=== PATIENT | male | born 1980 | race Caucasian/White ===

== ENCOUNTER 2018-11-14 17:08 | Inpatient (IN) ==
--- NOTE | 2018-11-14 18:02 | Emergency Department Note ---
Disposition Clinical Impression: Suicidal ideation Disposition: Admitted As Inpatient Time of Disposition: 22:25 Psych HPI - General Chief Complaint: ED Psychiatric Symptoms Stated Complaint: anxiety/depression Time Seen by Provider: 11/14/18 17:43 Source: patient Mode of arrival: ambulatory Limitations: no limitations Nursing Notes Reviewed: Yes Vital Signs Reviewed: Yes - History of Present Illness HPI Narrative: 38M with PMHx of depression and anxiety presents the emergency department with suicidal ideation and worsening depression. The patient states that he has been increasing his home dose of antidepressant with his primary care doctor but over the past 2 weeks he has felt as though he did not want to be alive anymore and that the world would be a better place without him. He does note that his and 3 kids need to have him around but he does not know how much longer he go on like this. Patient has had specific thoughts about jumping off the review behind his house to kill himself. He denies having any homicidal ideation, visual or auditory hallucinations, and states that he has not taken anything an attempt to harm himself today. He came here seeking help so that he would not give into his suicidal ideations. - Related Data Home Medications Medication Instructions Recorded Confirmed Depression Pills 01/23/18 Ibuprofen 01/23/18 Previous Rx's Medication Instructions Recorded Hydrocortisone 2.5% CREAM [Cortaid] 1 applic TP TID 7 Days #1 tube 01/23/18 Allergies Allergy/AdvReac Type Severity Reaction Status Date / Time Penicillins AdvReac Nausea Verified 01/23/18 17:43 All systems ED: reviewed and negative except as stated. Review of Systems: As Per HPI Constitutional: Denies: fever, weakness Cardiovascular: Denies: chest pain, palpitations, dyspnea on exertion Respiratory: Denies: cough, dyspnea, wheezes Gastrointestinal: Denies: abdominal pain, nausea, vomiting Genitourinary: Denies: dysuria, hematuria Musculoskeletal: Denies: back pain Endocrine: Denies: fatigue Past Medical History - Past Medical History Attestation: Yes The following information was validated with the patient. Source: patient Medical history: Reports: other Psychiatric history: Reports: anxiety, depression - Social History Smoking Status: Never smoker Smokeless Tobacco Status: No Alcohol use: Reports: none Drug use: Reports: none Physical Exam - General Limitations: no limitations General appearance: alert, in no apparent distress - Head Head exam: atraumatic, normocephalic - Eye Eye exam: Present: normal appearance, PERRL, EOMI - ENT ENT exam: normal exam, normal oropharynx - Neck Neck exam: Present: normal inspection. Absent: tenderness - Chest Chest inspection: Present: normal inspection. Absent: tenderness - Respiratory Respiratory exam: Present: normal lung sounds bilaterally. Absent: wheezes - Cardiovascular Cardiovascular exam: Present: regular rate, normal rhythm - Abdominal Exam Abdominal exam: Present: soft, Non-Tender. Absent: distention, guarding, rebound, rigidity - Extremities Exam Extremities exam: Present: normal inspection. Absent: tenderness - Neurological Exam Neurological exam: Present: alert, oriented X3 - Psychiatric Psychiatric exam: Present: normal affect, normal mood, suicidal ideation. Absent: homicidal ideation - Skin Skin exam: Present: warm, dry, intact Course Vital Signs Temperature 97.4 F L 11/14/18 17:16 Pulse Rate 69 11/14/18 17:16 Respiratory Rate 16 11/14/18 17:16 Blood Pressure 155/94 11/14/18 17:16 O2 Sat by Pulse Oximetry 99 11/14/18 17:16 Temperature 97.4 F L 11/14/18 17:16 Pulse Rate 69 11/14/18 17:16 Respiratory Rate 16 11/14/18 17:16 Blood Pressure 155/94 11/14/18 17:16 O2 Sat by Pulse Oximetry 99 11/14/18 17:16 Oxygen Delivery Oxygen Delivery Room Air Psych - MDM Narrative Medical decision making narrative: Patient presents with suicidal ideations and concern is he does not want to kill himself but he does not want to be alive anymore. We will do screening labs and consult with [facility] to help with further management of this patient. [place] slip was signed at 17:45. Patient has been accepted for further evaluation by [facility]. - Lab Data Result diagrams: 11/14/18 17:56 11/14/18 17:56 Lab Results 11/14/18 11/14/18 11/14/18 Range/Units 17:50 17:56 17:56 WBC 7.2 (4.3-11.1) K/mcL RBC 4.99 (4.19-5.50) M/mcL Hgb 15.6 (12.9-16.9) g/dL Hct 45.5 (37.5-50.1) % MCV 91.2 (83.0-100.0) fL MCH 31.3 (28.0-33.3) pg MCHC 34.3 (31.6-35.5) g/dL RDW 12.7 (11.5-14.5) % Plt Count 202 (140-400) K/mcL MPV 9.3 L (9.4-12.4) fL Immature Gran % 0.3 (0-4) % Seg Neutrophils % 62.6 % Lymphocytes % 26.3 % Monocytes % 8.8 % Eosinophils % 1.0 % Basophils % 1.0 % Neutrophils # 4.5 (1.6-8.9) K/mcL Lymphocytes # 1.9 (0.6-4.6) K/mcL Monocytes # 0.6 (0.0-1.3) K/mcL Eosinophils # 0.1 (0.0-0.6) K/mcL Basophils # 0.1 (0.0-0.2) K/mcL Sodium (136-145) mEq/L Potassium (3.5-5.1) mEq/L Chloride (98-107) mEq/L Carbon Dioxide (23-29) mEq/L BUN (6-20) mg/dL Creatinine (0.70-1.30) mg/dL Est GFR ( Amer) (> 60) Est GFR (Non-Af Amer) (> 60) BUN/Creatinine Ratio (6-26) Glucose (70-105) mg/dL Calculated Osmolality (280-300) Calcium (8.6-10.3) mg/dL Urine Color Dark Yellow (Yellow) Urine Clarity Clear (Clear) Urine pH 5.5 (5.0-8.0) pH Units Ur Specific [place] > 1.030 H (1.010-1.025) Urine Protein 30 H (Neg-Trace) mg/dL Urine Glucose (UA) Normal (Normal) mg/dL Urine Ketones Negative (Negative) mg/dL Urine Blood Negative (Negative) Urine Nitrite Negative (Negative) Urine Bilirubin Small H (Negative) Urine Urobilinogen Normal (Normal) mg/dL Ur Leukocyte Esterase Negative (Negative) Urine Microscopic WBC 3-5 H (0-3) per hpf Ur Squamous Epith Cells Moderate H (None-Few) per lpf Calcium Oxalate Crystal Present Urine Bacteria None Seen (None-Few) per hpf Hyaline Casts None Seen (None-Few) per lpf Salicylates (15.0-30.0) mg/dL Urine Opiates Screen Negative (Qqpqlw=124) ng/mL Ur Buprenorphine Scrn Negative (Cutoff=5) ng/mL Acetaminophen (10-20) mcg/mL Ur Barbiturates Screen Negative (Onzfgq=585) ng/mL Ur Phencyclidine Scrn Negative (Cutoff=25) ng/mL Ur Amphetamines Screen Negative (Jxwkxb=4031) ng/mL U Benzodiazepines Scrn Negative (Qddyng=785) ng/mL Urine Cocaine Screen Negative (Cutoff= 300) ng/mL U Marijuana (THC) Screen Negative (Cutoff = 50) ng/mL Ur Drug Screen Interp See Below Ethyl Alcohol (Less than 10) mg/dL 11/14/18 Range/Units 17:56 WBC (4.3-11.1) K/mcL RBC (4.19-5.50) M/mcL Hgb (12.9-16.9) g/dL Hct (37.5-50.1) % MCV (83.0-100.0) fL MCH (28.0-33.3) pg MCHC (31.6-35.5) g/dL RDW (11.5-14.5) % Plt Count (140-400) K/mcL MPV (9.4-12.4) fL Immature Gran % (0-4) % Seg Neutrophils % % Lymphocytes % % Monocytes % % Eosinophils % % Basophils % % Neutrophils # (1.6-8.9) K/mcL Lymphocytes # (0.6-4.6) K/mcL Monocytes # (0.0-1.3) K/mcL Eosinophils # (0.0-0.6) K/mcL Basophils # (0.0-0.2) K/mcL Sodium 142 (136-145) mEq/L Potassium 3.7 (3.5-5.1) mEq/L Chloride 105 (98-107) mEq/L Carbon Dioxide 26 (23-29) mEq/L BUN 25 H (6-20) mg/dL Creatinine 1.01 (0.70-1.30) mg/dL Est GFR ( Amer) > 60 (> 60) Est GFR (Non-Af Amer) > 60 (> 60) BUN/Creatinine Ratio 25 (6-26) Glucose 137 H (70-105) mg/dL Calculated Osmolality 301 H (280-300) Calcium 9.1 (8.6-10.3) mg/dL Urine Color (Yellow) Urine Clarity (Clear) Urine pH (5.0-8.0) pH Units Ur Specific [place] (1.010-1.025) Urine Protein (Neg-Trace) mg/dL Urine Glucose (UA) (Normal) mg/dL Urine Ketones (Negative) mg/dL Urine Blood (Negative) Urine Nitrite (Negative) Urine Bilirubin (Negative) Urine Urobilinogen (Normal) mg/dL Ur Leukocyte Esterase (Negative) Urine Microscopic WBC (0-3) per hpf Ur Squamous Epith Cells (None-Few) per lpf Calcium Oxalate Crystal Urine Bacteria (None-Few) per hpf Hyaline Casts (None-Few) per lpf Salicylates < 2.5 L (15.0-30.0) mg/dL Urine Opiates Screen (Msafrv=008) ng/mL Ur Buprenorphine Scrn (Cutoff=5) ng/mL Acetaminophen < 10 L (10-20) mcg/mL Ur Barbiturates Screen (Tplldd=605) ng/mL Ur Phencyclidine Scrn (Cutoff=25) ng/mL Ur Amphetamines Screen (Nebpts=4129) ng/mL U Benzodiazepines Scrn (Vdutpq=931) ng/mL Urine Cocaine Screen (Cutoff= 300) ng/mL U Marijuana (THC) Screen (Cutoff = 50) ng/mL Ur Drug Screen Interp Ethyl Alcohol < 10 (Less than 10) mg/dL Psychiatric Medical Clearance - Medical Clearance Checklist Medical History: No Social History Section defined Current Vitals: Last Vital Signs Temp 97.4 F L 11/14/18 17:16 Pulse 69 11/14/18 17:16 Resp 16 11/14/18 17:16 BP 155/94 11/14/18 17:16 Pulse Ox 99 11/14/18 17:16 Psychiatric Lab Panel: Drug Levels and Toxicity 11/14/18 11/14/18 17:56 17:56 Urine Opiates Screen Negative Acetaminophen < 10 L Ur Barbiturates Screen Negative Ur Phencyclidine Scrn Negative Ur Amphetamines Screen Negative U Benzodiazepines Scrn Negative Urine Cocaine Screen Negative U Marijuana (THC) Screen Negative Ethyl Alcohol < 10 Abnormal Labs: Abnormal lab results MPV 9.3 fL (9.4-12.4) L 11/14/18 17:56 BUN 25 mg/dL (6-20) H 11/14/18 17:56 Glucose 137 mg/dL (70-105) H 11/14/18 17:56 Calculated Osmolality 301 (280-300) H 11/14/18 17:56 Ur Specific [place] > 1.030 (1.010-1.025) H 11/14/18 17:50 Urine Protein 30 mg/dL (Neg-Trace) H 11/14/18 17:50 Urine Bilirubin Small (Negative) H 11/14/18 17:50 Urine Microscopic WBC 3-5 per hpf (0-3) H 11/14/18 17:50 Ur Squamous Epith Cells Moderate per lpf (None-Few) H 11/14/18 17:50 Salicylates < 2.5 mg/dL (15.0-30.0) L 11/14/18 17:56 Acetaminophen < 10 mcg/mL (10-20) L 11/14/18 17:56 Statement of Medical Clearance: I have evaluated the patient, reviewed diagnostic information, and certify that the patient's medical condition is sufficiently stable that transfer to the psychiatric unit does not pose a significant risk of deterioration.
[2018-11-14 18:06] LABS: Basophils # 0.1 K/mcL (0.0-0.2); Eosinophils # 0.1 K/mcL (0.0-0.6); Hematocrit 45.5 % (37.5-50.1); Hemoglobin 15.6 g/dL (12.9-16.9); Immature Granulocytes % 0.3 % (0-4); Lymphocytes # 1.9 K/mcL (0.6-4.6); Lymphocytes % 26.3 %; Mean Corpuscular HGB Conc 34.3 g/dL (31.6-35.5); Mean Corpuscular Hemoglobin 31.3 pg (28.0-33.3); Mean Corpuscular Volume 91.2 fL (83.0-100.0); Mean Platelet Volume 9.3 fL (9.4-12.4); Monocytes # 0.6 K/mcL (0.0-1.3); Monocytes % 8.8 %; Neutrophils # 4.5 K/mcL (1.6-8.9); Platelet Count 202 K/mcL (140-400); Red Blood Count 4.99 M/mcL (4.19-5.50); Red Cell Distribution Width 12.7 % (11.5-14.5); Segmented Neutrophils % 62.6 %; White Blood Count 7.2 K/mcL (4.3-11.1)
[2018-11-14 18:06] LABS: Bilirubin,Urine Small (Negative); Blood,Urine Negative (Negative); Clarity,Urine Clear (Clear); Color,Urine Dark Yellow (Yellow); Glucose,Urine (UA) Normal (Normal); Ketones,Urine Negative (Negative); Leukocyte Esterase,Urine Negative (Negative); Nitrite,Urine Negative (Negative); PH,Urine 5.5 pH Units (5.0-8.0); Protein,Urine 30 mg/dL (Neg-Trace); Specific Gravity,Urine > 1.030 (1.010-1.025); Urobilinogen,Urine Normal (Normal)
[2018-11-14 18:08] LABS: Bacteria,Urine None Seen per hpf (None-Few); Hyaline Casts,Urine None Seen per lpf (None-Few); Squamous Epithelial Cell,Urine Moderate per lpf (None-Few)
[2018-11-14 18:16] LABS: Amphetamine Screen,Urine Negative ng/mL (Cutoff=1000); Barbiturate Screen,Urine Negative ng/mL (Cutoff=200); Benzodiazepines Screen,Urine Negative ng/mL (Cutoff=200); Cannabinoid Screen,Urine Negative ng/mL (Cutoff = 50); Cocaine Screen,Urine Negative ng/mL (Cutoff= 300); Opiate Screen,Urine Negative ng/mL (Cutoff=300); Phencyclidine Screen,Urine Negative ng/mL (Cutoff=25)
[2018-11-14 18:19] LABS: Calcium Oxalate Crystals,Urine Present
[2018-11-14 18:26] LABS: Acetaminophen < 10 mcg/mL (10-20); BUN/Creatinine Ratio 25 (6-26); Blood Urea Nitrogen 25 mg/dL (6-20); Calcium 9.1 mg/dL (8.6-10.3); Carbon Dioxide 26 mEq/L (23-29); Chloride 105 mEq/L (98-107); Ethanol < 10 mg/dL (Less than 10); Glucose 137 mg/dL (70-105); Osmolality,Calculated 301 (280-300); Potassium 3.7 mEq/L (3.5-5.1); Salicylate < 2.5 mg/dL (15.0-30.0); Sodium 142 mEq/L (136-145); eGFR For African Americans > 60 (> 60); eGFR For Non-African Americans > 60 (> 60)
--- NOTE | 2018-11-14 20:13 | Emergency Department Note ---
Disposition Clinical Impression: Suicidal ideation Disposition: Admitted As Inpatient Condition: Good Time of Disposition: 22:25 General Adult HPI - General Chief complaint: ED Psychiatric Symptoms Stated complaint: anxiety/depression Time Seen by Provider: 11/14/18 17:43 Source: patient Mode of arrival: ambulatory Limitations: no limitations - History of Present Illness Pain Scale: 0 - Related Data Home Medications Medication Instructions Recorded Confirmed Hydrocortisone 2.5% CREAM [Cortaid] 1 appl TP DAILY PRN 11/15/18 11/15/18 Ibuprofen [Ibu-200] 200 mg PO Q6-8H PRN 11/15/18 11/15/18 Omeprazole [PriLOSEC] 20 mg PO DAILY 11/15/18 11/15/18 Ondansetron ODT [Zofran ODT] 4 mg SL Q8HR PRN 11/15/18 11/15/18 Sertraline [Zoloft] 25 mg PO HS 11/15/18 11/15/18 Sertraline [Zoloft] 50 mg PO HS 11/15/18 11/15/18 Allergies Allergy/AdvReac Type Severity Reaction Status Date / Time Penicillins AdvReac Gastrointestinal Verified 11/15/18 08:55 Upset Constitutional: Denies: fever, weakness Cardiovascular: Denies: chest pain, palpitations, dyspnea on exertion Respiratory: Denies: cough, dyspnea, wheezes Gastrointestinal: Denies: abdominal pain, nausea, vomiting Genitourinary: Denies: dysuria, hematuria Musculoskeletal: Denies: back pain Endocrine: Denies: fatigue Past Medical History - Past Medical History Medical history: Reports: other Psychiatric history: Reports: anxiety, depression - Social History Smoking Status: Never smoker Smokeless Tobacco Status: No Alcohol use: Reports: none Drug use: Reports: none Physical Exam - General Limitations: no limitations General appearance: alert, in no apparent distress Course Vital Signs Temperature 97.4 F L 11/14/18 17:16 Pulse Rate 69 11/14/18 17:16 Respiratory Rate 16 11/14/18 17:16 Blood Pressure 155/94 11/14/18 17:16 O2 Sat by Pulse Oximetry 99 11/14/18 17:16 Temperature 97.2 F L 11/15/18 19:52 Pulse Rate 59 11/15/18 19:52 Respiratory Rate 16 11/15/18 19:52 Blood Pressure 137/74 11/15/18 19:52 O2 Sat by Pulse Oximetry 99 11/15/18 19:52 Oxygen Delivery Oxygen Delivery Room Air Medical Decision Making - Lab Data Result diagrams: 11/14/18 17:56 11/14/18 17:56 Lab Results 11/14/18 11/14/18 11/14/18 Range/Units 17:50 17:56 17:56 WBC 7.2 (4.3-11.1) K/mcL RBC 4.99 (4.19-5.50) M/mcL Hgb 15.6 (12.9-16.9) g/dL Hct 45.5 (37.5-50.1) % MCV 91.2 (83.0-100.0) fL MCH 31.3 (28.0-33.3) pg MCHC 34.3 (31.6-35.5) g/dL RDW 12.7 (11.5-14.5) % Plt Count 202 (140-400) K/mcL MPV 9.3 L (9.4-12.4) fL Immature Gran % 0.3 (0-4) % Seg Neutrophils % 62.6 % Lymphocytes % 26.3 % Monocytes % 8.8 % Eosinophils % 1.0 % Basophils % 1.0 % Neutrophils # 4.5 (1.6-8.9) K/mcL Lymphocytes # 1.9 (0.6-4.6) K/mcL Monocytes # 0.6 (0.0-1.3) K/mcL Eosinophils # 0.1 (0.0-0.6) K/mcL Basophils # 0.1 (0.0-0.2) K/mcL Sodium (136-145) mEq/L Potassium (3.5-5.1) mEq/L Chloride (98-107) mEq/L Carbon Dioxide (23-29) mEq/L BUN (6-20) mg/dL Creatinine (0.70-1.30) mg/dL Est GFR ( Amer) (> 60) Est GFR (Non-Af Amer) (> 60) BUN/Creatinine Ratio (6-26) Glucose (70-105) mg/dL Calculated Osmolality (280-300) Calcium (8.6-10.3) mg/dL Urine Color Dark Yellow (Yellow) Urine Clarity Clear (Clear) Urine pH 5.5 (5.0-8.0) pH Units Ur Specific [place] > 1.030 H (1.010-1.025) Urine Protein 30 H (Neg-Trace) mg/dL Urine Glucose (UA) Normal (Normal) mg/dL Urine Ketones Negative (Negative) mg/dL Urine Blood Negative (Negative) Urine Nitrite Negative (Negative) Urine Bilirubin Small H (Negative) Urine Urobilinogen Normal (Normal) mg/dL Ur Leukocyte Esterase Negative (Negative) Urine Microscopic WBC 3-5 H (0-3) per hpf Ur Squamous Epith Cells Moderate H (None-Few) per lpf Calcium Oxalate Crystal Present Urine Bacteria None Seen (None-Few) per hpf Hyaline Casts None Seen (None-Few) per lpf Salicylates (15.0-30.0) mg/dL Urine Opiates Screen Negative (Hirqql=157) ng/mL Ur Buprenorphine Scrn Negative (Cutoff=5) ng/mL Acetaminophen (10-20) mcg/mL Ur Barbiturates Screen Negative (Sjcfle=762) ng/mL Ur Phencyclidine Scrn Negative (Cutoff=25) ng/mL Ur Amphetamines Screen Negative (Llzmmk=0276) ng/mL U Benzodiazepines Scrn Negative (Gerotu=061) ng/mL Urine Cocaine Screen Negative (Cutoff= 300) ng/mL U Marijuana (THC) Screen Negative (Cutoff = 50) ng/mL Ur Drug Screen Interp See Below Ethyl Alcohol (Less than 10) mg/dL 11/14/18 Range/Units 17:56 WBC (4.3-11.1) K/mcL RBC (4.19-5.50) M/mcL Hgb (12.9-16.9) g/dL Hct (37.5-50.1) % MCV (83.0-100.0) fL MCH (28.0-33.3) pg MCHC (31.6-35.5) g/dL RDW (11.5-14.5) % Plt Count (140-400) K/mcL MPV (9.4-12.4) fL Immature Gran % (0-4) % Seg Neutrophils % % Lymphocytes % % Monocytes % % Eosinophils % % Basophils % % Neutrophils # (1.6-8.9) K/mcL Lymphocytes # (0.6-4.6) K/mcL Monocytes # (0.0-1.3) K/mcL Eosinophils # (0.0-0.6) K/mcL Basophils # (0.0-0.2) K/mcL Sodium 142 (136-145) mEq/L Potassium 3.7 (3.5-5.1) mEq/L Chloride 105 (98-107) mEq/L Carbon Dioxide 26 (23-29) mEq/L BUN 25 H (6-20) mg/dL Creatinine 1.01 (0.70-1.30) mg/dL Est GFR ( Amer) > 60 (> 60) Est GFR (Non-Af Amer) > 60 (> 60) BUN/Creatinine Ratio 25 (6-26) Glucose 137 H (70-105) mg/dL Calculated Osmolality 301 H (280-300) Calcium 9.1 (8.6-10.3) mg/dL Urine Color (Yellow) Urine Clarity (Clear) Urine pH (5.0-8.0) pH Units Ur Specific [place] (1.010-1.025) Urine Protein (Neg-Trace) mg/dL Urine Glucose (UA) (Normal) mg/dL Urine Ketones (Negative) mg/dL Urine Blood (Negative) Urine Nitrite (Negative) Urine Bilirubin (Negative) Urine Urobilinogen (Normal) mg/dL Ur Leukocyte Esterase (Negative) Urine Microscopic WBC (0-3) per hpf Ur Squamous Epith Cells (None-Few) per lpf Calcium Oxalate Crystal Urine Bacteria (None-Few) per hpf Hyaline Casts (None-Few) per lpf Salicylates < 2.5 L (15.0-30.0) mg/dL Urine Opiates Screen (Ngvcom=430) ng/mL Ur Buprenorphine Scrn (Cutoff=5) ng/mL Acetaminophen < 10 L (10-20) mcg/mL Ur Barbiturates Screen (Xgryes=450) ng/mL Ur Phencyclidine Scrn (Cutoff=25) ng/mL Ur Amphetamines Screen (Jezevk=3714) ng/mL U Benzodiazepines Scrn (Zvwjun=709) ng/mL Urine Cocaine Screen (Cutoff= 300) ng/mL U Marijuana (THC) Screen (Cutoff = 50) ng/mL Ur Drug Screen Interp Ethyl Alcohol < 10 (Less than 10) mg/dL Attestation Statement - Attestation Attestation: I examined this patient and my medical decision-making was reviewed with the Resident Physician. I agree with the documented findings, disposition and treatment plan as described except to the extent set forth below. Patient 38-year-old gentleman who presents to emergency department with chief complaint of depression and suicidal ideation. Physical exam patient is awake alert no acute distress patient is depressed and suicidal ideation The patient was medically cleared for psychiatric evaluation and was evaluated by the one a nurse who recommended the patient be admitted to the [facility] service
[2018-11-14] MEDS ORDERED: Haloperidol Lactate 5 MG/ML VIAL IM PRN (21:47)
[2018-11-14] MEDS ORDERED: MOM Conc 10 ML UD.LIQ PO PRN (21:47)
[2018-11-14] MEDS ORDERED: Mag Hydrox/Al Hydrox/Simeth 30 ML UDC PO PRN (21:47)
[2018-11-14] MEDS ORDERED: *HR* LORazepam 2 MG/ML VIAL IM PRN (21:47)
[2018-11-14] MEDS ORDERED: traZODone 50 MG TABLET PO PRN (21:47)
[2018-11-14] MEDS ORDERED: Ibuprofen 400 MG TABLET PO PRN (21:47)
[2018-11-14] MEDS ORDERED: hydrOXYzine pamoate 25 MG CAPSULE PO PRN (21:47)
[2018-11-14] MEDS ORDERED: *HR* LORazepam 1 MG TABLET PO PRN (21:47)
[2018-11-15] MEDS: BuPROPion XL (24 HR) 150 MG TABLET PO SCH (12:38)
--- NOTE | 2018-11-15 13:46 | Psychiatry History & Physical ---
Date of Encounter: 11/15/18 Time of Encounter: 11:10 History of Present Illness Patient Stated Chief Complaint: I am not thinking right. Medicare Admission Attestation: For traditional Medicare patients the provided hospital inpatient services are reasonable and necessary and in the case of services not specified as inpatient-only under 42 CFR 419.22 (n), that they are appropriately provided as inpatient services in accordance 42 CFR 412.3. For Critical Access Hospital the patient may reasonably be expected to be discharged or transferred to a hospital within 96 hours after admission to the Critical Access Hospital. Admitted From: Emergency Dept Plans for Post Hospital Care: Home History of Present Illness: Mr. Davies is a 38 year old male who presented at the ER for suicidal id eation without plan or intent. He was alert, oriented aware of circumstance and had full capacity. He was admitted to 1A psychiatry unit. He appears calm, affable and cooperative. Describes mood as "depressed and not feeling right for past 2 weeks". He endorses depersonalization for past 2 weeks, decreased emotional expression, decreased interest in hobbies and activities, insomnia, change in appetite, inability to focus at work. Dr. Russell Medina is his therapist and client has been his patient for since 2012. Client currently lives with his spouse and 3 children. He describes being in a stable relationship. He denies any financial stressors or relationship problems. He has 6 children aged: 20,16,14, two 13 and a 4 year old. He has been twice with his previous passing away due to complications from Melanoma. Client reports significant stress while previous was ill. He endorses suicidal thoughts 3 and a half years ago and plan to use hand gun for self harm. Self-reports orthodox helped him recover from suicidal thoughts/plan. Client on Sertraline 75 mg PO HS for past 2 weeks. Dosage changed from 50 mg by PCP. He reports sexual side effects including erectile dysfunction since starting Sertraline. Client doesn't endorse SI/HI during time of interview. 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 Family psychiatric history: Unknown Family History of Suicide: None - Social History Smoking Status: Former smoker Packs per day: 1 Smokeless Tobacco Status: No Alcohol use: none Drug use: none Occupational status: employed Current living situation: Home - Independent Activity Level: Independent ambulation Recent Out of Country Travel Within the Last 8 Weeks: No Exposure or Possible Exposure to Illness During Travel: No - Family History Mother Name: marty Age: 65 Living Status: Still Living Hx Family Cardiac Disorders: Yes (atrial fibrillation) Hx Family Respiratory Disorders: No Hx Family Cancer: No Hx Family GI Disorders: Yes (ulcers) Hx Family Genitourinary Disorders: No Hx Family Endocrine Disorder: No Hx Family Musculoskeletal Disorders: No Hx Family Neuromuscular Disorders: No Hx Family Neurologic Disorders: No Hx Family HEENT Disorders: No Hx Family Autoimmune Disorders: No Hx Family Reproductive Disorders: No Hx Family Psychosocial Disorders: No Hx Family Medical Disorders: No Medications & Allergies Hydrocortisone 2.5% CREAM [Cortaid] 1 appl TP DAILY PRN 11/15/18 [History] Ibuprofen [Ibu-200] 200 mg PO Q6-8H PRN 11/15/18 [History] Omeprazole [PriLOSEC] 20 mg PO DAILY 11/15/18 [History] Ondansetron ODT [Zofran ODT] 4 mg SL Q8HR PRN 11/15/18 [History] Sertraline [Zoloft] 25 mg PO HS 11/15/18 [History] Sertraline [Zoloft] 50 mg PO HS 11/15/18 [History] Allergy/AdvReac Type Severity Reaction Status Date / Time Penicillins AdvReac Gastrointestinal Verified 11/15/18 08:55 Upset Review of Systems Constitutional: Denies: fever, chills, weight change, night sweats Ears, Nose, Throat: Reports: congestion (reports history of congestion for past few weeks. PCP placed him on Omeprazole. Client reports decreased congestion since starting medication.) Cardiovascular: Denies: chest pain, palpitations, dyspnea on exertion Respiratory: Denies: cough, wheezes Gastrointestinal: Reports: abdominal pain (reports history of abdominal pain and GERD for past few weeks. PCP placed him on Omeprazole. Client reports decreased congestion and abdominal pain since starting medication.), nausea (Current reports being on Zofran by PCP. ). Denies: diarrhea, constipation, hematemisis, melena, hematochezia Genitourinary male: Reports: other (Erectile dysfunction since starting Sertraline.). Denies: urgency, dysuria Musculoskeletal: Denies: myalgia Integumentary: Denies: rash Neurological: Denies: headache, confusion, abnormal gait, vertigo Psychiatric: Reports: depression, abnormal sleep pattern, change in appetite, change in libido, difficulty concentrating, hopelessness, irritability, mood swings Endocrine: Denies: fatigue, polydipsia, polyuria Exam - HEENT Eye exam IM: Present: normal appearance ENT exam IM: Present: normal exam - Neurological Neurological exam: Present: CN II-XII intact, alert - Respiratory Respiratory exam IM: Absent: accessory muscle use, respiratory distress, wheezes, tachypnea - Extremities Extremities exam IM: Present: full ROM - Skin Skin exam IM: Present: intact, normal color. Absent: diaphoretic - Constitutional Vitals: Temp Pulse Resp BP Pulse Ox 97.5 F L 57 16 134/84 100 11/15/18 09:00 11/15/18 09:00 11/15/18 09:00 11/15/18 09:00 11/15/18 09:00 General appearance: age & developmentally appropriate, well-groomed, well- nourished - Musculoskeletal Gait: normal Station: relaxed Strength & Tone: normal for patient - Psychiatric Patient Orientation: Yes Person, Yes Time, Yes Place, Yes Circumstance Level of alertness: Alert, Follows commands Behavior: calm, cooperative Psychomotor activity: Normal Eye Contact: Maintains Eye Contact Mood Description: Depressed Affect description: congruent with mood Speech Volume: Normal Speech pattern: normal rate, normal rhythm, normal tone, fluent Language & Vocabulary: consistent with education Thought Process: Intact Thought Content: Yes Intact, Yes Suicidal ideation, No Homicidal ideation, No Overt delusions Perceptual Disturbances: No Reacting to internal stimuli, No Auditory hallucinations, No Visual hallucinations Attention Span Ability: Capable of Focused Attention Memory Description: Grossly Intact Patient Reliability: Reliable Historian Fund of knowledge: Yes abstraction ability Intelligence Estimate: Average Judgment: Good Insight: Full Results - Drug Levels and Toxicology Drug Levels and Toxicology: Drug Levels and Toxicity 11/14/18 11/14/18 17:56 17:56 Urine Opiates Screen Negative Acetaminophen < 10 L Ur Barbiturates Screen Negative Ur Phencyclidine Scrn Negative Ur Amphetamines Screen Negative U Benzodiazepines Scrn Negative Urine Cocaine Screen Negative U Marijuana (THC) Screen Negative Ethyl Alcohol < 10 - Labs Labs: Laboratory Last Values WBC 7.2 K/mcL (4.3-11.1) 11/14/18 17:56 RBC 4.99 M/mcL (4.19-5.50) 11/14/18 17:56 Hgb 15.6 g/dL (12.9-16.9) 11/14/18 17:56 Hct 45.5 % (37.5-50.1) 11/14/18 17:56 MCV 91.2 fL (83.0-100.0) 11/14/18 17:56 MCH 31.3 pg (28.0-33.3) 11/14/18 17:56 MCHC 34.3 g/dL (31.6-35.5) 11/14/18 17:56 RDW 12.7 % (11.5-14.5) 11/14/18 17:56 Plt Count 202 K/mcL (140-400) 11/14/18 17:56 MPV 9.3 fL (9.4-12.4) L 11/14/18 17:56 Immature Gran % 0.3 % (0-4) 11/14/18 17:56 Seg Neutrophils % 62.6 % 11/14/18 17:56 Lymphocytes % 26.3 % 11/14/18 17:56 Monocytes % 8.8 % 11/14/18 17:56 Eosinophils % 1.0 % 11/14/18 17:56 Basophils % 1.0 % 11/14/18 17:56 Neutrophils # 4.5 K/mcL (1.6-8.9) 11/14/18 17:56 Lymphocytes # 1.9 K/mcL (0.6-4.6) 11/14/18 17:56 Monocytes # 0.6 K/mcL (0.0-1.3) 11/14/18 17:56 Eosinophils # 0.1 K/mcL (0.0-0.6) 11/14/18 17:56 Basophils # 0.1 K/mcL (0.0-0.2) 11/14/18 17:56 Sodium 142 mEq/L (136-145) 11/14/18 17:56 Potassium 3.7 mEq/L (3.5-5.1) 11/14/18 17:56 Chloride 105 mEq/L (98-107) 11/14/18 17:56 Carbon Dioxide 26 mEq/L (23-29) 11/14/18 17:56 BUN 25 mg/dL (6-20) H 11/14/18 17:56 Creatinine 1.01 mg/dL (0.70-1.30) 11/14/18 17:56 Est GFR ( Amer) > 60 (> 60) 11/14/18 17:56 Est GFR (Non-Af Amer) > 60 (> 60) 11/14/18 17:56 BUN/Creatinine Ratio 25 (6-26) 11/14/18 17:56 Glucose 137 mg/dL (70-105) H 11/14/18 17:56 Calculated Osmolality 301 (280-300) H 11/14/18 17:56 Calcium 9.1 mg/dL (8.6-10.3) 11/14/18 17:56 Urine Color Dark Yellow (Yellow) 11/14/18 17:50 Urine Clarity Clear (Clear) 11/14/18 17:50 Urine pH 5.5 pH Units (5.0-8.0) 11/14/18 17:50 Ur Specific [place] > 1.030 (1.010-1.025) H 11/14/18 17:50 Urine Protein 30 mg/dL (Neg-Trace) H 11/14/18 17:50 Urine Glucose (UA) Normal mg/dL (Normal) 11/14/18 17:50 Urine Ketones Negative mg/dL (Negative) 11/14/18 17:50 Urine Blood Negative (Negative) 11/14/18 17:50 Urine Nitrite Negative (Negative) 11/14/18 17:50 Urine Bilirubin Small (Negative) H 11/14/18 17:50 Urine Urobilinogen Normal mg/dL (Normal) 11/14/18 17:50 Ur Leukocyte Esterase Negative (Negative) 11/14/18 17:50 Urine Microscopic WBC 3-5 per hpf (0-3) H 11/14/18 17:50 Ur Squamous Epith Cells Moderate per lpf (None-Few) H 11/14/18 17:50 Calcium Oxalate Crystal Present 11/14/18 17:50 Urine Bacteria None Seen per hpf (None-Few) 11/14/18 17:50 Hyaline Casts None Seen per lpf (None-Few) 11/14/18 17:50 Salicylates < 2.5 mg/dL (15.0-30.0) L 11/14/18 17:56 Urine Opiates Screen Negative ng/mL (Bflfye=895) 11/14/18 17:56 Ur Buprenorphine Scrn Negative ng/mL (Cutoff=5) 11/14/18 17:56 Acetaminophen < 10 mcg/mL (10-20) L 11/14/18 17:56 Ur Barbiturates Screen Negative ng/mL (Xppavh=521) 11/14/18 17:56 Ur Phencyclidine Scrn Negative ng/mL (Cutoff=25) 11/14/18 17:56 Ur Amphetamines Screen Negative ng/mL (Gpvmbb=3692) 11/14/18 17:56 U Benzodiazepines Scrn Negative ng/mL (Vlfsoh=996) 11/14/18 17:56 Urine Cocaine Screen Negative ng/mL (Cutoff= 300) 11/14/18 17:56 U Marijuana (THC) Screen Negative ng/mL (Cutoff = 50) 11/14/18 17:56 Ur Drug Screen Interp See Below 11/14/18 17:56 Ethyl Alcohol < 10 mg/dL (Less than 10) 11/14/18 17:56 Assessment and Plan (1) Adjustment disorder Current visit: Yes Status: Acute Plan: Admit inpatient for safety and stabilization, Close observation, Suicide Precautions per unit protocol, Encourage participation in unit milieu, Group Therapy, Monitor sleep, Monitor appetite Additional Plan: Client medication adjusted to include augmentation with Welbutrin to help with depressed mood, mood swings, irritability and erectile dysfunction. Melatonin added to assist with sleep. Risks, benefits, side effects, alternatives discussed w/pt: Yes Patient agreeable to treatment: Yes Plans for Post Hospital Care: at Home Qualifiers: Adjustment disorder type: with depressed mood Qualified Code(s): F43.21 - Adjustment disorder with depressed mood - Attending Attestation Client very pleasant. Clear depressive symptoms including depressed mood, SI, poor sleep, anhedonia, irritability. No intent or plan to end life but not f eeling himself and wanting help. Previously took Effexor but it raised his blood pressure. Zoloft has been helpful but client has been experiencing sexual side effects. Discussed options and client would like to try Wellbutrin along with low dose Melatonin to help with sleep.
[2018-11-15] MEDS ORDERED: Melatonin 3 MG TABLET PO SCH (21:00)
[2018-11-16 09:07] VITALS: BP 128/76
[2018-11-16] MEDS: BuPROPion XL (24 HR) 150 MG TABLET PO SCH (09:10)
--- NOTE | 2018-11-16 10:23 | Discharge Summary ---
Date of Encounter: 11/16/18 Time of Encounter: 10:20 Diagnosis - Discharge Diagnosis (1) Adjustment disorder Status: Acute Qualifiers: Adjustment disorder type: with depressed mood Qualified Code(s): F43.21 - Adjustment disorder with depressed mood Medications - Discharge Medications Prescriptions: Melatonin 3 mg PO HS 30 Days tablet BuPROPion XL (24 HR) [Wellbutrin Xl] 150 mg PO DAILY #30 tab.er.24h Hydrocortisone 2.5% CREAM [Cortaid] 1 appl TP DAILY PRN 11/15/18 [History] Ibuprofen [Ibu-200] 200 mg PO Q6-8H PRN 11/15/18 [History] Omeprazole [PriLOSEC] 20 mg PO DAILY 11/15/18 [History] Ondansetron ODT [Zofran ODT] 4 mg SL Q8HR PRN 11/15/18 [History] BuPROPion XL (24 HR) [Wellbutrin Xl] 150 mg PO DAILY #30 tab.er.24h 11/16/18 [Rx] Melatonin 3 mg PO HS 30 Days tablet 11/16/18 [Rx] Allergy/AdvReac Type Severity Reaction Status Date / Time Penicillins AdvReac Gastrointestinal Verified 11/15/18 08:55 Upset Results Procedures and tests throughout hospitalization: Completed Lab Orders Category Date Time Status Acetaminophen Stat Lab 11/14/18 17:56 Completed Basic Metabolic Panel Stat Lab 11/14/18 17:56 Completed Complete Blood Count [HEME] Stat Lab 11/14/18 17:56 Completed Drug Screen, Urine [UCHEM] Stat Lab 11/14/18 17:56 Completed Ethanol Stat Lab 11/14/18 17:56 Completed Salicylate Stat Lab 11/14/18 17:56 Completed Urinalysis reflex Microscopic [URIN] Stat Lab 11/14/18 17:50 Completed Provider Date of admission: 11/14/18 20:46 Primary care physician: PCP NONE Discharging clinician: Krystle Zamora Psychiatry Exam - Constitutional Vitals: Temp Pulse Resp BP Pulse Ox 97.7 F 66 18 128/76 99 11/16/18 09:00 11/16/18 09:00 11/16/18 09:00 11/16/18 09:00 11/16/18 09:00 General appearance: age & developmentally appropriate, well-groomed, well- nourished - Musculoskeletal Gait: normal Station: relaxed Strength & Tone: normal for patient - Psychiatric Patient Orientation: Yes Person, Yes Time, Yes Place Level of alertness: Alert Behavior: calm, cooperative Psychomotor activity: Normal Eye Contact: Maintains Eye Contact Mood Description: Euthymic/stable Affect description: congruent with mood, full range Speech Volume: Normal Speech pattern: normal rate, normal rhythm, normal tone, fluent, spontaneous Language & Vocabulary: consistent with education Thought Process: Linear, Goal Oriented Thought Content: No Suicidal ideation, No Homicidal ideation, No Overt delusions Perceptual Disturbances: No Auditory hallucinations, No Visual hallucinations Attention Span Ability: Capable of Focused Attention Memory Description: Grossly Intact Patient Reliability: Reliable Historian Fund of knowledge: Yes abstraction ability, Yes aware of current events Intelligence Estimate: Average Judgment: Fair Insight: Partial Hospital Course Hospital course: Mr. Davies is a 38 year old male who was admitted for depression with SI. At time of admission client was taking Zoloft from PCP. Although client stated the Zoloft initially helped him he was experiencing sexual side effects and wanted to try something different. He was switched to Wellbutrin with positive clinical effect. Sleep was also a big issue for him and he was started on Melatonin with success. Client states last night he slept so well he did not even wake up when staff brought in a new roommate in the middle of the night. On the unit client has been pleasant and engaged. He has attended and participated in all groups. He has interacted well with staff and peers. Today he is denying SI, intent, or plan. He is denying HI/AH/VH. He is bright, reactive, and future oriented. Had a good visit with his last night and she is supportive. Misses his kids and wants to go home. States he would "absolutely" return to the hospital if things worsened for him or if SI returned. "I have to be around for my kids." Willing to be linked with outpatient services and states he would be happy to engage in counseling in addition to medication management. Total time spent with client greater than 30 minutes. Patient was educated of his diagnosis and the risks, benefits, and side effects of this treatment and alternative treatment options and was monitored for responsiveness and side effects. Mood, anxiety, sleep, appetite, and interest improved, as did future orientation. Self-harm thoughts subsided, thinking cleared, psychosis resolved, and mood stabilized. Patient was able to attend both individual and group therapy sessions as well as meeting with the psychiatrist daily and urged to discuss any medication or treatment issues or other concerns. The patient was educated primarily by verbal means about their diagnosis and manifestations in their life. The option for treatment including group and individual therapy programming was offered to the patient in the use of medications with all their potential risks, benefits, and side effects were discussed with the patient at length. The patient was given the opportunity to ask questions and was noted to participate in the treatment in the planning process. The patient felt ready and eager to be discharged from the inpatient sychiatric unit to continue on with treatment as an outpatient. The patient agreed that he is safe for this disposition. The patient was considered to be able to participate in informed consent and decision making with respect to medical, legal, and financial issues of the time of discharge. At the time of discharge the patient adamantly denied any concerns for lethality including suicidal or homicidal thoughts ideations or plans and was future oriented toward ongoing mental health care, medical follow-up and sobriety. - Time Spent with Patient Total time spent providing and/or coordinating discharge services: Greater than 30 minutes Assessment and Plan - Patient/Caregiver Discharge Instructions Activity: resume usual activities as tolerated Diet: regular diet - Follow up Plan Follow up with: [facility] [Outside] Stacey Alvarez DO [Resident] - 12/06/18 9:00 am (You have an appointment scheduled with this provider on Tuesday, December 06, 2018 at 9:00 AM. Please keep all of your healthcare providers informed of any changes in your medications, treatments or medical conditions. Please contact the office at the number above at least 24 hours in advance if you are unable to keep this appointment. ) Functional capacity at discharge: independent ambulation Overall status at discharge: Stable Disposition: Home, Self-Care Quality - Multiple Antipsychotics Patient discharged on 2 or more antipsychotic medications: No Procedures - Procedures Procedures: Medication Management, Crisis Stabilization, Supportive Therapy, Group Therapy
== END 2018-11-16 12:00 | disposition home or self-care (01) | DRG 754 ==
LOC: EMEROOARM 17:08 → 1ANU 20:46
PROVIDERS: ADMIT Psychiatry & Neurology Psychiatry; ATTEND Psychiatry & Neurology Psychiatry